=== PATIENT | female | born 1960 | race African-American/Black ===

== ENCOUNTER 2023-12-26 14:38 | Inpatient (IN) | payer BC ==
[2023-12-26 18:01] VITALS: BMI 27.4
[2023-12-26] MEDS ORDERED: POLYETHYLENE GLYCOL (HEALTHYLAX) 3350 17 GM PACKET PO PRN (19:31)
[2023-12-26] MEDS ORDERED: ACETAMINOPHEN 325 MG TABLET (FP) PO PRN (19:31)
[2023-12-26] MEDS ORDERED: LOPERAMIDE HCL 2 MG CAPSULE PO PRN (19:31)
[2023-12-26] MEDS ORDERED: guaiFENesin 600 MG TABLET.ER (FP) PO PRN (19:31)
[2023-12-26] MEDS ORDERED: BENZOCAINE/MENTHOL (CHLORASEPTIC ) LOZENGE MM PRN (19:31)
[2023-12-26] MEDS ORDERED: MAG HYDROX/AL HYDROX/SIMETH 30 ML UNIT-DOSE CUP PO PRN (19:31)
[2023-12-26] MEDS ORDERED: BENZONATATE 200 MG CAPSULE PO PRN (19:31)
[2023-12-26] MEDS: MELATONIN 5 MG TABLETS PO SCH (21:48)
[2023-12-26] MEDS: THIAMINE 100 MG TABLET PO SCH (21:48)
[2023-12-26] MEDS: ASPIRIN COATED 81 MG TABLET.EC PO SCH (21:50)
[2023-12-26] MEDS: DOCUSATE SODIUM 100 MG CAPSULE (FP) PO PRN (21:50)
[2023-12-26] MEDS: BACITRACIN ZINC 15 GM TUBE TOPICAL OINTMENT TP SCH (22:19)
[2023-12-26] MEDS: ACETAMINOPHEN 325 MG TABLET (FP) PO PRN (22:22)
[2023-12-26] MEDS: TUBERCULIN PPD 5 TU/0.1ML SYRINGE (IN PATIENT USE ONLY) ID ONE (23:24)
[2023-12-27] MEDS: metFORMIN HCL 500 MG TABLET (FP) PO ONE (06:48)
[2023-12-27] MEDS: PRENATAL VITAMINS W/ FOLIC ACID TABLET (FP) PO SCH (10:27)
[2023-12-27] MEDS: IBUPROFEN 600 MG TABLET (FP) PO PRN (10:27)
[2023-12-27 11:32] LABS: HEMATOCRIT 44.1 % (32.4-45.2); HEMOGLOBIN 14.8 GM/dL (10.7-15.3); MCH 29.6 pg (25.7-33.7); MCHC 33.6 g/dl (32.0-36.0); MEAN CELL VOLUME 88.1 fl (80-96); MEAN PLT VOLUME 9.5 fl (7.5-11.1); PLATELET COUNT 174 10^3/uL (134-434); RDW 13.6 % (11.6-15.6); WHITE BLOOD COUNT 5.8 K/mm3 (4.0-10.0)
[2023-12-27 12:03] LABS: CHLORIDE 103 mmol/L (98-107); POTASSIUM 4.5 mmol/L (3.5-5.1); SODIUM 137 mmol/L (136-145)
[2023-12-27 12:14] LABS: BLOOD UREA NITROGEN 18.2 mg/dL (7-18); CALCIUM 8.8 mg/dL (8.5-10.1)
[2023-12-27 12:15] LABS: ALBUMIN 3.1 g/dl (3.4-5.0); ANION GAP 5 mmol/L (4-13); CO2 29 mmol/L (21-32); GLUCOSE,RANDOM 320 mg/dL (74-106)
[2023-12-27 12:17] LABS: SGPT/ALT 16 U/L (13-61)
[2023-12-27 12:18] LABS: CREATININE 0.7 mg/dL (0.55-1.3); SGOT/AST 11 U/L (15-37)
[2023-12-27 12:19] LABS: BILIRUBIN,TOTAL 0.8 mg/dL (0.2-1); TOT PROT 6.3 g/dl (6.4-8.2)
[2023-12-27 12:20] LABS: ALK PHOS 101 U/L (45-117)
[2023-12-27 17:29] LABS: EPI CELLS >36 /uL (0-25.1); HYALINE CASTS 3 /uL (0-3.1); PH,URINE 7.5 (5.0-8.0); URINE APPEARANCE TURBID; URINE BACTERIA 1630 /uL (0-1359); URINE BILIRUBIN NEGATIVE (NEGATIVE); URINE COLOR YELLOW; URINE GLUCOSE (UA) 3+ (NEGATIVE); URINE KETONE TRACE (NEGATIVE); URINE LEUK ESTERASE 1+ (NEGATIVE); URINE NITRITE NEGATIVE (NEGATIVE); URINE PROTEIN NEGATIVE (NEGATIVE); URINE RBC 22 /uL (0-23.9); URINE UROBILINOGEN 0.2 mg/dL (0.2-1.0); URINE WBC 146 /uL (0-25.8)
[2023-12-28] MEDS: INSULIN ASPART SLIDING SCALE (NOVOLOG) 1 VIAL SQ SCH (07:17)
[2023-12-28] MEDS ORDERED: INSULIN (NOVOLOG) ASPART 100 UNITS/ML 10ML VIAL ONE (07:50)
[2023-12-28] MEDS: metFORMIN HCL 500 MG TABLET (FP) PO SCH (13:07)
[2023-12-28] MEDS: MAGNESIUM HYDROX 2400MG/30ML ORAL SUSPENSION 30 ML CUP PO PRN (17:02)
[2023-12-28] MEDS: SUVOREXANT 5 MG TABLET PO PRN (21:27)
[2023-12-29] MEDS ORDERED: INSULIN (NOVOLOG) ASPART 100 UNITS/ML 10ML VIAL ONE ×2 (07:49→11:57)
[2023-12-30] MEDS: BISACODYL 5 MG TABLET.DR (FP) PO PRN (21:36)
[2023-12-31] MEDS ORDERED: INSULIN (NOVOLOG) ASPART 100 UNITS/ML 10ML VIAL ONE ×2 (07:44→12:08)
[2023-12-31] MEDS: IBUPROFEN 400 MG TABLET (FP) PO PRN (16:56)
[2023-12-31] MEDS: SUVOREXANT 5 MG TABLET PO PRN (21:37)
[2024-01-01] MEDS ORDERED: INSULIN (NOVOLOG) ASPART 100 UNITS/ML 10ML VIAL ONE ×2 (07:48→11:53)
[2024-01-01] MEDS ORDERED: BACITRACIN 0.9 GM PACKET TP SCH (11:07)
[2024-01-01] MEDS: BACITRACIN 0.9 GM PACKET TP SCH (11:43)
[2024-01-02] MEDS ORDERED: INSULIN (NOVOLOG) ASPART 100 UNITS/ML 10ML VIAL ONE (05:39)
[2024-01-03] MEDS ORDERED: INSULIN (NOVOLOG) ASPART 100 UNITS/ML 10ML VIAL ONE (07:27)
[2024-01-03] MEDS: METHOCARBAMOL 500 MG TABLET PO PRN (10:04)
[2024-01-03] MEDS: SUVOREXANT 10 MG TABLET PO PRN (21:20)
[2024-01-04] MEDS ORDERED: INSULIN (NOVOLOG) ASPART 100 UNITS/ML 10ML VIAL ONE ×3 (06:01→11:50)
[2024-01-05] MEDS ORDERED: INSULIN (NOVOLOG) ASPART 100 UNITS/ML 10ML VIAL ONE ×3 (06:31→17:09)
[2024-01-05 06:55] VITALS: RESP 18
[2024-01-06] MEDS ORDERED: INSULIN (NOVOLOG) ASPART 100 UNITS/ML 10ML VIAL ONE (12:08)
[2024-01-07] MEDS ORDERED: INSULIN (NOVOLOG) ASPART 100 UNITS/ML 10ML VIAL ONE ×2 (07:02→11:52)
[2024-01-08] MEDS ORDERED: INSULIN (NOVOLOG) ASPART 100 UNITS/ML 10ML VIAL ONE ×2 (12:01→12:09)
[2024-01-08] MEDS: SUVOREXANT 10 MG TABLET PO PRN (21:25)
[2024-01-09] MEDS ORDERED: INSULIN (NOVOLOG) ASPART 100 UNITS/ML 10ML VIAL ONE (06:08)
[2024-01-09 06:59] VITALS: BP 130/70; PULSE 78; TEMP 97.1
== END 2024-01-09 10:50 | disposition home or self-care (01) | DRG 772 ==
LOC: YASAS 14:38 → Y5N 20:59
PROVIDERS: ADMIT Allergy & Immunology; ATTEND Psychiatry & Neurology Pain Medicine
PROC: HZ42ZZZ Group Counseling for Substance Abuse Treatment, Cognitive-Behavioral (ICD-10-PCS; principal; 2023-12-26)
DX: F14.20 Cocaine dependence, uncomplicated (principal); F10.10 Alcohol abuse, uncomplicated; F17.210 Nicotine dependence, cigarettes, uncomplicated; F19.282 Other psychoactive substance dependence with psychoactive substance-induced sleep disorder; G47.00 Insomnia, unspecified; E11.9 Type 2 diabetes mellitus without complications; Z79.84 Long term (current) use of oral hypoglycemic drugs; Z95.1 Presence of aortocoronary bypass graft; Z79.82 Long term (current) use of aspirin; Z86.73 Personal history of transient ischemic attack (TIA), and cerebral infarction without residual deficits; Z99.89 Dependence on other enabling machines and devices
CPT/HCPCS: 36415; 80053; 80305; 80307; 81003; 82962; 85027; 86593; 86780; 87811; 93005; 93010